=== PATIENT | male | born 1965 | race Caucasian/White ===

== ENCOUNTER 2018-09-05 15:55 | Emergency (ER) | payer OTHER, SELFPAY ==
--- NOTE | 2018-09-05 18:58 | RAD ---
2 views of the chest: 09/05/2018 COMPARISON: None HISTORY: Cough, choked on a peanut FINDINGS: Lungs are clear. Heart and mediastinal contours are unremarkable. IMPRESSION: No acute findings.
== END 2018-09-05 19:16 | disposition home or self-care (01) ==
LOC: ERS 15:55
DX: J32.9 Chronic sinusitis, unspecified (principal)
CPT/HCPCS: 71046

== ENCOUNTER 2021-08-10 12:20 | Observation (INO) | payer BC ==
[2021-08-10 12:55] VITALS: BMI 30.9
[2021-08-10] MEDS ORDERED: Calcium Carbonate 500 MG ChewTAB PO PRN (13:05)
[2021-08-10] MEDS ORDERED: Acetaminophen 650 MG Suppository PR PRN (13:05)
[2021-08-10] MEDS ORDERED: Ondansetron ODT 4 MG TAB PO PRN (13:05)
[2021-08-10] MEDS ORDERED: Acetaminophen 325 MG TAB PO PRN (13:05)
[2021-08-10] MEDS ORDERED: Nitroglycerin 0.4 MG TAB (25 Tab Bottle) SL PRN (13:05)
[2021-08-10] MEDS ORDERED: Ondansetron PF 4 MG/2 ML Vial IVP PRN (13:05)
[2021-08-10] MEDS ORDERED: Aspirin Chewable 81 MG TAB PO SCH (13:15)
[2021-08-10 15:11] LABS: Troponin I Less than 0.010 ng/mL (< 0.028)
[2021-08-10 16:41] LABS: Troponin I Less than 0.010 ng/mL (< 0.028)
[2021-08-10 21:02] LABS: SARS-CoV-2 PCR by NAA Not Detected (NotDetected)
[2021-08-10 21:38] LABS: Hemoglobin A1c 5.5 % (4.0-6.0)
[2021-08-11 05:04] LABS: #Eosinphils 0.2 thou/uL (0.0-0.7); #Lymphocytes 2.7 thou/uL (1.20-3.40); #Monocytes 0.7 thou/uL (0.11-0.59); #Neutrophils 3.5 thou/uL (1.40-6.50); %Basophils 0.5 % (0.0-1.0); %Lymphocytes 37.2 % (21.0-51.0); %Monocytes 9.9 % (0.0-10.0); %Neutrophils 49.4 % (42.0-75.0); Hemoglobin 13.8 g/dL (14.0-18.0); Mean Corpuscular HGB CONC 32.8 g/dL (32.0-36.0); Mean Corpuscular Hemoglobin 30.3 pg (27.0-31.0); Mean Corpuscular Volume 92.3 fL (78.0-98.0); Mean Platelet Volume 7.2 fL (7.4-10.4); Platelet Count 301 thou/uL (130-400); RBC Distribution Width 13.1 % (11.5-14.5); Red Blood Cell (RBC) Count 4.57 mill/uL (4.70-6.10); White Blood Cell (WBC) Count 7.1 thou/uL (4.8-10.8)
[2021-08-11 05:32] LABS: Anion Gap 12 mmol/L (10-20); BUN (Urea Nitrogen) 17 mg/dL (8.4-25.7); Calc. Creatinine Clearance 131 mL/min (70-130); Calcium 8.5 mg/dL (7.8-10.44); Carbon Dioxide 22 mmol/L (22-29); Cardiac Risk 5.1 (Less than 4.5); Chloride 108 mmol/L (98-107); Cholesterol 197 mg/dl (< 200 Desired); Glucose 100 mg/dL (70-105); HDL Cholesterol 39 mg/dL (>60 Neg Risk); LDL Cholesterol, Calculated 124 mg/dL; Sodium 137 mmol/L (136-145); Triglycerides 170 mg/dL (Less than 150)
[2021-08-11] MEDS ORDERED: Aspirin Chewable 81 MG TAB PO SCH (09:00)
[2021-08-11 15:55] VITALS: BP 120/64; TEMP 98.2
== END 2021-08-11 16:15 | disposition home or self-care (01) ==
LOC: 2SW 12:20
PROVIDERS: ADMIT Hospitalist; ATTEND Hospitalist
DX: R07.89 Other chest pain (principal); E78.5 Hyperlipidemia, unspecified; Z82.49 Family history of ischemic heart disease and other diseases of the circulatory system; Z20.822 Contact with and (suspected) exposure to COVID-19
CPT/HCPCS: 36415; 78452; 80048; 80061; 83036; 85025; 93017; 94760; A9500; G0378; U0003; U0005